=== PATIENT | male | born 2000 | race Caucasian/White ===

== ENCOUNTER 2021-04-16 17:02 | Emergency (ER) | payer MEDICAID ==
[~2021-04-16] VITALS: Ht 165.1 cm; Wt 61.2 kg
[2021-04-16 17:06] VITALS: BP 135/76
[2021-04-16] MEDS ORDERED: NAPR-1192 PO (18:25)
== END 2021-04-16 19:13 | disposition home or self-care (01) ==
LOC: ER 17:05
DX: S52.592A Other fractures of lower end of left radius, initial encounter for closed fracture (principal); S52.612A Displaced fracture of left ulna styloid process, initial encounter for closed fracture; V49.49XA Driver injured in collision with other motor vehicles in traffic accident, initial encounter; Y93.89 Activity, other specified; Y92.413 State road as the place of occurrence of the external cause; Y99.8 Other external cause status
CPT/HCPCS: 73090-TC